=== PATIENT | female | born 1965 | race Caucasian/White ===

== ENCOUNTER → 2021-06-15 | Outpatient (CLI) | payer OTHER ==
--- NOTE | 2021-06-15 11:57 | P.STRESS ---
- Stress Test Note Stress Test Results/Findings: Exam Performed: stress echo exercise Exam Date: 06/15/21 Reason for Exam: CP Height: 6 ft Weight: 185 kg Protocol: STRESS ECHO Stage: III Duration of Exercise: 8.01 Resting Heart Rate: 79 Resting Blood Pressure: 121/93 Maximum Achieved Heart Rate: 151 Maximum Achieved Blood Pressure: 168/73 85% PMHR: 139 100% PMHR: 165 METS: 8.3 Technologist Comment: Stress Test Results/Findings: Baseline twelve-lead EKG shows sinus rhythm normal ST segments Patient exercised on a Meir protocol for 8 minutes She complained of mild chest discomfort This was not accompanied by any ECG changes are consistent with ischemia Baseline 2-D echo images showed normal LV systolic function without segmental w all motion abnormalities at peak exercise there was excellent augmentation of overall LV contractility without development of any wall motion abnormalities @Recovery regional and global LV systolic function remained Normal Impression Average exercise capacity No ECG or echocardiographic evidence for ischemia Patient experienced mild chest comfort during the stress test
== END | disposition home or self-care (01) ==
LOC: RADNMMAIN 09:11
PROVIDERS: ATTEND Family Medicine
DX: R07.9 Chest pain, unspecified (principal)
CPT/HCPCS: 93351

== ENCOUNTER → 2023-01-13 | Outpatient (CLI) | payer OTHER ==
--- NOTE | 2023-01-14 08:15 | MM ---
Reason for Exam: Screening (asymptomatic). Last mammogram was performed 4 year(s) and 9 month(s) ago. Patient History: Menarche at age 11. First Full-Term at age 29. Late child-bearing (after 30). Postmenopausal. Maternal aunt had breast cancer, age 78. Risk Values: Bailee 5 year model risk: 1.8%. NCI Lifetime model risk: 10.5%. Prior Study Comparison: 05/28/2014 Bilateral Screening Mammogram, [facility] [place]. 11/04/2015 Bilateral Screening Mammogram, [facility] [place]. 04/24/2018 Bilateral Screening Mammogram, [facility] [place]. Tissue Density: There are scattered fibroglandular densities. Findings: Analyzed By CAD. There is no suspicious group of microcalcifications or new suspicious mass in either breast. Overall Assessment: Negative, BI-RAD 1 Management: Screening Mammogram of both breasts in [address] [facility] will attempt to contact patient to return for supplemental views and ultrasound if indicated. Patient should continue monthly self-breast exams. A clinical breast exam by your physician is recommended on an annual basis. This exam should not preclude additional follow-up of suspicious palpable abnormalities. Note on Bailee scores and lifetime risk: 1. A Bailee score greater than 3% is considered moderate risk. If this is the case, consider specialist referral to assess eligibility for a risk reducing agent. 2. If overall lifetime risk for the development of breast cancer is 20% or higher, the patient may qualify for future screening with alternating mammogram and breast MRI. Electronically signed and approved by: Oumar Burch DO
== END | disposition home or self-care (01) ==
LOC: RADMAMWWP 06:42
PROVIDERS: ATTEND Family Medicine
DX: Z12.31 Encounter for screening mammogram for malignant neoplasm of breast (principal); Z78.0 Asymptomatic menopausal state; Z80.3 Family history of malignant neoplasm of breast
CPT/HCPCS: 77063; 77067

== ENCOUNTER → 2024-03-02 | Outpatient (CLI) | payer BC ==
[2024-03-02 10:35] LABS: Basophils # (A) 0.08 X 10*3/uL (0.00-0.10); Basophils % (A) 1.3 %; Eosinophils # (A) 0.24 X 10*3/uL (0.04-0.35); HGB 11.9 g/dL (12.0-15.0); Lymphocytes # (A) 1.65 X 10*3/uL (0.90-5.00); Lymphocytes % (A) 27.7 %; MCHC 32.2 g/dL (32.0-37.0); MCV 93.2 FL (80.0-97.0); Mean Platelet Volume 10.4 FL (9.5-12.2); Monocytes # (A) 0.41 X 10*3/uL (0.20-1.00); Monocytes % (A) 6.9 %; NRBC Per 100 WBC 0 X 10*3/uL (0.00-0.01); Neutrophils # (A) 3.52 X 10*3/uL (1.80-7.70); Neutrophils % (A) 59.3 %; Platelet Count 264 X 10*3/uL (140-440); RBC 3.97 X 10*6/uL (4.10-5.20); RDW 12.7 % (11.5-14.5); WBC 5.95 X 10*3/uL (4.50-10.00)
[2024-03-02 11:02] LABS: ALT 19 U/L (8-44); AST 17 U/L (13-35); Albumin 4.5 g/dL (3.8-4.9); Albumin/Globulin Ratio 2.05 Ratio (1.60-3.17); Alkaline Phosphatase 74 U/L (41-126); Calcium 9.3 mg/dL (8.7-10.3); Carbon Dioxide 24.8 mmol/L (21.6-31.8); Chloride 105 mmol/L (96-109); Chol/HDL Ratio 4.95 Ratio; Globulin 2.2 g/dL (1.6-3.3); Glucose 135 mg/dL (70-110); LDL Cholesterol,Calculated 164.1 mg/dL (0.0-131.0); Potassium 4.6 mmol/L (3.5-5.5); Sodium 140 mmol/L (135-145); Total Bilirubin 0.3 mg/dL (0.3-1.2); Total Protein 6.7 g/dL (6.2-8.2)
--- NOTE | 2024-03-05 11:15 | MM ---
Reason for Exam: Screening (asymptomatic). Last mammogram was performed 1 year(s) and 2 month(s) ago. Patient History: Menarche at age 11. First Full-Term at age 29. Late child-bearing (after 30). Postmenopausal. Maternal aunt had breast cancer, age 78. Risk Values: Bailee 5 year model risk: 1.9%. NCI Lifetime model risk: 10.2%. Prior Study Comparison: 11/04/2015 Bilateral Screening Mammogram, [facility] [place]. 04/24/2018 Bilateral Screening Mammogram, [facility] [place]. 01/13/2023 Bilateral MG 3D screening mammo w/cad, [facility]. Tissue Density: The breasts are almost entirely fatty. Findings: Analyzed By CAD. Right breast: There is no suspicious group of microcalcifications or new suspicious mass. Left breast: There is no suspicious group of microcalcifications or new suspicious mass. Overall Assessment: Negative, BI-RAD 1 Management: Screening Mammogram of both breasts in [address] [facility] will attempt to contact patient to return for supplemental views and ultrasound if indicated. Patient should continue monthly self-breast exams. A clinical breast exam by your physician is recommended on an annual basis. This exam should not preclude additional follow-up of suspicious palpable abnormalities. Note on Bailee scores and lifetime risk: 1. A Bailee score greater than 3% is considered moderate risk. If this is the case, consider specialist referral to assess eligibility for a risk reducing agent. 2. If overall lifetime risk for the development of breast cancer is 20% or higher, the patient may qualify for future screening with alternating mammogram and breast MRI. Electronically signed and approved by: Oumar Burch DO
== END | disposition home or self-care (01) ==
LOC: RADMAMWWP 06:42
PROVIDERS: ATTEND Internal Medicine
DX: Z12.31 Encounter for screening mammogram for malignant neoplasm of breast (principal); Z78.0 Asymptomatic menopausal state; Z80.3 Family history of malignant neoplasm of breast; R20.2 Paresthesia of skin
CPT/HCPCS: 77067; 80053; 80061; 84443; 85025